=== PATIENT | male | born 1980 | race Two or more races ===

== ENCOUNTER 2025-02-01 21:08 | Emergency (ER) | payer MEDICAID, SELFPAY ==
[2025-02-01 21:14] VITALS: BP 147/94; PULSE 137; RESP 19; TEMP 36.6; O2SAT 97; BMI 29.3
--- NOTE | 2025-02-01 21:14 | PD.EDADULT ---
ED General RME/HPI General Chief complaint: Medical Clearance Stated complaint: MEDICAL CLEARANCE Time Seen by Provider: 02/01/25 21:13 Arrival date/time: 02/01/25 21:08 CC: Medical clearance HPI patient comes to the emergency room after admitting to methamphetamine needs for tachycardic, please at bedside with the patient hand State the patient will not be received intake illnesses heart rate less than 130. Patient denies any other symptoms including chest pain shortness of breath or difficulty breathing. Related Data Allergies Allergy/AdvReac Type Severity Reaction Status Date / Time No Known Allergies Allergy Verified 02/01/25 21:23 ED Exam Narrative Physical exam: [General: Not in any acute distress Head normocephalic HEENT: Within acceptable limits Neck is supple nontender Chest equal chest rise nontender to palpation Respiratory: Clear to auscultation no wheezes crackles or rubs CV: Rate rhythm is regular, tachycardia, no murmurs rubs or clicks Abdomen is distended secondary to body habitus soft nontender no masses positive bowel sounds all 4 quadrants Back: No CVA tenderness no spinous process tenderness from cervical spine thoracic and lumbar spine Skin: Intact no petechiae rash induration ulceration or crepitus Extremities: Moving all extremity against resistance cap refill less than 2 seconds neurosensory intact Neuro: Awake alert oriented x3 Glascow coma 15 no focal deficits] Course Quality Measures none Orders Category Date Time Status Diazepam Inj [Valium Inj] Med 02/01/25 21:22 Discontinued 10 mg IM X1 ONE Diazepam Inj [Valium Inj] Med 02/01/25 21:13 Discontinued 10 mg IVP X1 ONE Vital Signs Vital signs: Vital Signs Temperature 97.9 F 02/01/25 21:14 Pulse Rate 137 H 02/01/25 21:14 Respiratory Rate 19 02/01/25 21:14 Blood Pressure 147/94 H 02/01/25 21:14 Pulse Oximetry (%) 97 02/01/25 21:14 Oxygen Delivery Method Room Air 02/01/25 21:14 [facility] Patient data External records reviewed:: [facility] previous records Clinical information provided by:: law enforcement Social determinants that could affect healthcare access:: none Patient has the following chronic illnesses:: Methamphetamine abuse How is presenting disease/condition affected by chronic disease/condition?: exacerbated by Evaluation data The following diagnostics were reviewed and interpreted by me:: other (specify) (None) Lab and/or radiology exams considered but not ordered:: None Interpretation Summary: Heart rate decreased to 1 10:25 milligrams of IM Valium given. None Medications Medications considered but not ordered:: None Medication administrations:: Medication Administration History Discontinued Medications Diazepam (Diazepam Inj 5 Mg/Ml Vial 2 Ml) 10 mg IVP X1 ONE Stop: 02/01/25 21:14 Last Admin: 02/01/25 21:24 Dose: Not Given Documented By: CVL Non-Admin Reason: Cancelled by Provider Diazepam (Diazepam Inj 5 Mg/Ml Vial 2 Ml) 10 mg IM X1 ONE Stop: 02/01/25 21:23 Last Admin: 02/01/25 21:37 Dose: 10 mg Documented By: WO Discharge Consultations Consultation(s) initiated? (list below): No Diagnosis Differential Diagnosis ED Complaint MDM: Hypertension tachycardia methamphetamine abuse Most likely diagnosis given after review of the tests above:: Tachycardia methamphetamine abuse Admission Indicated Admission indicated?: not indicated Explain why admission is indicated or not indicated:: For penitentiary Admission Request Was there a request for admission?: No Disposition Plan Disposition Plan: Discharge Discharge Attestation Discharge Attestation: The patient and all family members were given an opportunity to ask questions and understood the discharge instructions. Discharge instructions specifically effects, indications for sooner follow up or return to the emergency department, and the expected course of current diagnosis. Patient condition: Stable Medical Decision Making Differential Diagnosis Differential Diagnosis: Hypertension tachycardia methamphetamine abuse Discharge Plan Plan Patient Disposition: [facility]/Court/Law Patient condition on transfer: Stable Prescriptions/Referrals Referrals: No Primary/Family,Physician [Primary Care Provider] - In 1 week Problem List Clinical Impression: Medical clearance for incarceration, Tachycardia Patient/Caregiver Discharge Instructions Print Language: Vietnamese XENA/BIENVENIDO Supervising Physician ELROY Supervising Physician: Yasmany Pang ENP
[2025-02-01] MEDS: DIAZEPAM INJ 5 MG/ML VIAL 2 ML 10 MG IM (21:37)
[2025-02-01 22:02] VITALS: BP 136/106; PULSE 125; RESP 19; TEMP 36.6; O2SAT 97
== END 2025-02-01 22:30 ==
PROVIDERS: Emergency Provider Emergency Medicine
DX: Z02.89 Encounter for other administrative examinations (principal); R00.0 Tachycardia, unspecified
CPT/HCPCS: 96372; 99283; J3360